=== PATIENT | female | born 1955 | race American Indian/Alaskan Native ===

== ENCOUNTER 2021-03-17 15:35 | Inpatient (IN) | payer BC ==
[2021-03-17] MEDS ORDERED: HYDROmorphone 0.5 MG/0.5 ML Syringe IVPUSH ONE (18:09)
[2021-03-17] MEDS ORDERED: Ondansetron 4 MG/2 ML SDV IVPUSH ONE (18:09)
--- NOTE | 2021-03-17 18:14 | EDM.PDOC ---
ED HPI GENERAL MEDICAL PROBLEM - General Chief Complaint: Abdominal Pain Stated Complaint: LOWER ABD PAIN Time Seen by Provider: 03/17/21 18:01 Source of Information: Reports: Patient History Limitations: Reports: No Limitations - History of Present Illness INITIAL COMMENTS - FREE TEXT/NARRATIVE: And pain that started yesterday and is continued to intensify. 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 She denies having any fever but she has had chills. She has had decreased appetite with her last meal being a few bites of dinner last night. She is tachycardic and feels achy all over. She has significant right lower quadrant pain. She has been able to pass small amounts of gas and had a little bit of diarrhea yesterday but has not had any diarrhea today. She has had some nausea but no vomiting. She is status post cholecystectomy but still has her appendix. Working for the postal service, she has been fully vaccinated for COVID-19. - Related Data Allergies Allergy/AdvReac Type Severity Reaction Status Date / Time No Known Allergies Allergy Verified 03/17/21 16:32 Home Meds: Home Meds NK [No Known Home Meds] 03/17/21 [History] Past Medical History Gastrointestinal History: Reports: Cholelithiasis - Past Surgical History Female Surgical History: Reports: Tubal Ligation Social & Family History - Tobacco Use Tobacco Use Status *Q: Never Tobacco User ED ROS GENERAL - Review of Systems Review Of Systems: See Below Constitutional: Reports: Chills, Malaise, Decreased Appetite HEENT: Reports: No Symptoms Respiratory: Reports: No Symptoms Cardiovascular: Reports: No Symptoms Endocrine: Reports: No Symptoms GI/Abdominal: Reports: Abdominal Pain (Right lower quadrant pain), Anorexia, Decreased Appetite : Reports: No Symptoms Musculoskeletal: Reports: No Symptoms Skin: Reports: No Symptoms Neurological: Reports: No Symptoms Psychiatric: Reports: No Symptoms Hematologic/Lymphatic: Reports: No Symptoms Immunologic: Reports: No Symptoms ED EXAM, GI/ABD - Physical Exam Exam: See Below Exam Limited By: No Limitations General Appearance: Alert, Mild Distress Eyes: Bilateral: EOMI Throat/Mouth: Normal Inspection, Normal Oropharynx, Normal Voice, No Airway Compromise, Other (Teeth and tongue are blue from chewing blue gum) Neck: Normal Inspection, Supple, Non-Tender, Full Range of Motion Respiratory/Chest: No Respiratory Distress, Lungs Clear, Normal Breath Sounds Cardiovascular: Normal Peripheral Pulses, Regular Rate, Rhythm, No Murmur, Tachycardia GI/Abdominal Exam: Normal Bowel Sounds, Soft, Guarding (Lower quadrant), Rebound, Tender (Suprapubic and right lower quadrant pain with palpation) Back Exam: Normal Inspection Extremities: Normal Inspection Neurological: Alert, Oriented, Normal Cognition, No Motor/Sensory Deficits Psychiatric: Normal Affect, Normal Mood Skin Exam: Warm, Dry, Intact, Normal Color Lymphatic: No Adenopathy Course - Vital Signs Last Recorded V/S: Last Vital Signs Temp 36.8 C 03/17/21 16:38 Pulse 114 H 03/17/21 16:38 Resp 18 03/17/21 16:38 BP 138/82 03/17/21 16:38 Pulse Ox 94 L 03/17/21 16:38 - Orders/Labs/Meds Orders: Active Orders 24 hr Category Date Time Status Iopamidol [Isovue-300 (61%)] Med 03/17/21 18:30 Active 100 ml IV . DIRECTED Sodium Chloride 0.9% [Normal Saline] 1,000 ml Med 03/17/21 18:15 Active IV ASDIRECTED Sodium Chloride 0.9% [Normal Saline] 80 ml Med 03/17/21 18:30 Active IV ASDIRECTED Medication Orders Sodium Chloride (Normal Saline) 1,000 mls @ 999 mls/hr IV ASDIRECTED CHARLES Last Admin: 03/17/21 18:22 Dose: 999 mls/hr Documented by: GAYATHRI Sodium Chloride (Normal Saline) 80 mls @ 3 mls/sec IV ASDIRECTED CHARLES Last Admin: 03/17/21 18:38 Dose: 3 mls/sec Documented by: LESTER Iopamidol (Iopamidol 612 Mg/Ml 100 Ml Bottle) 100 ml IV . DIRECTED CHARLES Last Admin: 03/17/21 18:38 Dose: 100 ml Documented by: LESTER Labs: Laboratory Tests 03/17/21 03/17/21 Range/Units 16:45 16:45 WBC 13.1 H (4.5-11.0) K/uL RBC 5.22 (3.30-5.50) M/uL Hgb 14.0 (12.0-15.0) g/dL Hct 44.1 (36.0-48.0) % MCV 85 (80-98) fL MCH 27 (27-31) pg MCHC 32 (32-36) % Plt Count 249 (150-400) K/uL Neut % (Auto) 89.0 H (36-66) % Lymph % (Auto) 4.7 L (24-44) % [place] % (Auto) 6.1 H (2-6) % Eos % (Auto) 0.0 L (2-4) % Baso % (Auto) 0.2 (0-1) % Sodium 140 (140-148) mmol/L Potassium 3.9 (3.6-5.2) mmol/L Chloride 102 (100-108) mmol/L Carbon Dioxide 24 (21-32) mmol/L Anion Gap 14.5 H (5.0-14.0) mmol/L BUN 11 (7-18) mg/dL Creatinine 0.8 (0.6-1.0) mg/dL Est Cr Clr Drug Dosing 54.71 mL/min Estimated GFR (MDRD) > 60 (>60) Glucose 125 H (74-106) mg/dL Calcium 8.8 (8.5-10.1) mg/dL Total Bilirubin 0.9 (0.2-1.0) mg/dL AST 22 (15-37) U/L ALT 40 (12-78) U/L Alkaline Phosphatase 102 (46-116) U/L C-Reactive Protein 10.66 H (0.0-0.3) mg/dL Total Protein 6.8 (6.4-8.2) g/dL Albumin 3.5 (3.4-5.0) g/dL Globulin 3.3 (2.3-3.5) g/dL Albumin/Globulin Ratio 1.1 L (1.2-2.2) Meds: Medications Generic Name Dose Route Start Last Admin Trade Name Freq PRN Reason Stop Dose Admin Sodium Chloride 1,000 mls @ 999 mls/hr 03/17/21 18:15 03/17/21 18:22 Normal Saline IV 999 mls/hr ASDIRECTED CHARLES Administration Sodium Chloride 80 mls @ 3 mls/sec 03/17/21 18:30 03/17/21 18:38 Normal Saline IV 3 mls/sec ASDIRECTED CHARLES Administration Iopamidol 100 ml 03/17/21 18:30 03/17/21 18:38 Iopamidol 612 Mg/Ml 100 Ml Bottle IV 100 ml . DIRECTED CHARLES Administration Discontinued Medications Generic Name Dose Route Start Last Admin Trade Name Shanna PRN Reason Stop Dose Admin Hydromorphone HCl 0.5 mg 03/17/21 18:09 03/17/21 18:22 Hydromorphone 0.5 Mg/0.5 Ml Syringe IVPUSH 03/17/21 18:10 0.5 mg ONETIME ONE Administration Ondansetron HCl 4 mg 03/17/21 18:09 03/17/21 18:22 Ondansetron 4 Mg/2 Ml Sdv IVPUSH 03/17/21 18:10 4 mg ONETIME ONE Administration - Radiology Interpretation Free Text/Narrative:: I reviewed the CT of the abdomen and pelvis with contrast showing intraluminal contrast secondary to drinking a bottle of Pepto-Bismol. The patient does have significant enlargement of the appendix with an appendicolith and a fecalith with periappendiceal stranding consistent with acute appendicitis. - Re-Assessments/Exams Free Text/Narrative Re-Assessment/Exam: 03/17/21 19:15 reviewed the patient's labs showing a significant leukocytosis at 13.1 with left shift the 9% neutrophils. Her CRP is elevated at 10.63. She has mild widening of the anion gap at 14.1. Remainder of her comprehensive metabolic panel is unremarkable. Reviewed the CT of the abdomen and pelvis with contrast showing acute appendicitis with fecalith at the base of the appendix and appendicolith in the mid section of the appendix. There is appendiceal thickening and enlargement with periappendiceal stranding. There is intraluminal contrast in the terminal ileum and ascending colon secondary to drinking a bottle of Pepto-Bismol. 03/17/21 19:38 discussed the case with Dr. Hanson who will arrange for further treatment of the patient. Departure - Departure Time of Disposition: 19:38 Disposition: Admitted As Inpatient 65 Clinical Impression: Acute appendicitis with generalized peritonitis Qualifiers: Appendicitis gangrene presence: without gangrene Appendicitis perforation pre sence: unspecified whether perforation present Appendicitis abscess presence: without abscess Qualified Code(s): K35.20 - Acute appendicitis with generalized peritonitis, without abscess - Discharge Information Referrals: Rose Nolen DIGITAL SERVICE ENGINEER [Primary Care Provider] - Forms: ED Department Discharge Sepsis Event Note (ED) - Evaluation Sepsis Screening Result: No Definite Risk - Focused Exam Vital Signs: Vital Signs Temp Pulse Resp BP Pulse Ox 03/17/21 16:38 36.8 C 114 H 18 138/82 94 L 03/17/21 16:29 36.8 C 114 H 18 138/82 94 L - Problem List & Annotations (1) Acute appendicitis with generalized peritonitis SNOMED Code(s): 07184048 Code(s): K35.20 - ACUTE APPENDICITIS WITH GEN PERITONITIS, WITHOUT ABSCESS Status: Acute Priority: High Current Visit: Yes Qualifiers: Appendicitis gangrene presence: without gangrene Appendicitis perforation presence: unspecified whether perforation present Appendicitis abscess presence: without abscess Qualified Code(s): K35.20 - Acute appendicitis with generalized peritonitis, without abscess - Problem List Review Problem List Initiated/Reviewed/Updated: Yes - My Orders Last 24 Hours: My Active Orders 03/17/21 18:15 Sodium Chloride 0.9% [Normal Saline] 1,000 ml IV ASDIRECTED 03/17/21 18:30 Iopamidol [Isovue-300 (61%)] 100 ml IV . DIRECTED Sodium Chloride 0.9% [Normal Saline] 80 ml IV ASDIRECTED - Assessment/Plan Last 24 Hours: My Active Orders 03/17/21 18:15 Sodium Chloride 0.9% [Normal Saline] 1,000 ml IV ASDIRECTED 03/17/21 18:30 Iopamidol [Isovue-300 (61%)] 100 ml IV . DIRECTED Sodium Chloride 0.9% [Normal Saline] 80 ml IV ASDIRECTED
[2021-03-17] MEDS ORDERED: Sodium Chloride 0.9% 1,000 ML IV SCH (18:15)
[2021-03-17] MEDS ORDERED: Iopamidol 612 MG/ML 100 ML Bottle IV SCH (18:30)
[2021-03-17] MEDS ORDERED: Sodium Chloride 0.9% 80 ML IV SCH (18:30)
--- NOTE | 2021-03-17 19:30 | CRLCT ---
INDICATION: Right lower quadrant pain. COMPARISON: None available TECHNIQUE: CT examination of the abdomen and pelvis was performed with the uneventful intravenous administration of 100 cc of Isovue-300 while 3 mm thick axial sections were obtained from the lung bases through the pubic symphysis. Oral contrast was not administered. Please note that all CT scans at this facility use dose modulation, iterative reconstruction, and/or weight-based dosing when appropriate to reduce radiation dose to as low as reasonably achievable. FINDINGS: In the abdomen, the liver is seem to have mild intrahepatic biliary ductal dilatation. The liver is otherwise normal in appearance aside from a small calcified granuloma in the anterior segment of the right lobe of the liver along its inferior margin. The spleen, pancreas, and adrenals are normal in appearance. The kidneys are normal in appearance. Clips are seen in the gall bladder fossa from cholecystectomy. There is moderate dilatation of the common bile duct measuring 15 millimeters in caliber extending into the pancreatic head, consistent with post cholecystectomy status. The abdominal aorta is normal in caliber with no sign of dilatation. There is no sign of retroperitoneal mass or adenopathy. The stomach, loops of small bowel, and colon in the abdomen are normal in appearance. In the pelvis, the appendix is prominently dilated at 11 millimeters with mild thickening of its leno and moderate periappendiceal inflammatory reaction, findings digital media representative of acute, non ruptured appendicitis. There is no sign of any periappendiceal abscess. Multiple appendicular with scar seen in the appendix. There is a small amount of free fluid in the right pelvis, nonspecific, probably related to the inflammation. There is no sign of any extraluminal air or free air in the pelvis to suggest perforation. The loops of small bowel and colon in the pelvis are normal in appearance. The uterus and adnexal regions are normal in appearance. The urinary bladder is normal in appearance. There is no sign of pelvic or inguinal mass or adenopathy. There is no sign of free air or free fluid in the abdomen. There is mild patchy atelectasis in the posterior lung bases, associated with moderate right and mild left diaphragmatic eventration. There is minimal anterior subluxation of L4 on L5 and of L5 on S1 associated with mild L4-5 and L5-S1 disc degenerative disease. IMPRESSION: CT of the abdomen shows changes cholecystectomy with moderate dilatation of the common bile duct and mild intrahepatic biliary ductal dilatation consistent with post cholecystectomy status. CT of the pelvis shows findings of acute, non ruptured appendicitis. Small amount of fluid in the pelvis is probably secondary to inflammation from the appendix rather than perforation. Please note that all CT scans at this facility use dose modulation, iterative reconstruction, and/or weight-based dosing when appropriate to reduce radiation dose to as low as reasonably achievable. Dictated by Issac Valdez MD @ 03/17/2021 7:27:[address] Issac Valdez @ Mar 17 2021 7:27PM
[2021-03-17] MEDS ORDERED: Promethazine 12.5 MG in Sodium Chloride 0.9% 50 ML IV PRN (20:08)
[2021-03-17] MEDS ORDERED: Morphine 4 MG/ML Syringe IVPUSH PRN (20:08)
[2021-03-17] MEDS ORDERED: diphenhydrAMINE 50 MG/ML SDV IVPUSH PRN ×2 (20:08)
[2021-03-17] MEDS ORDERED: Promethazine 25 MG in Sodium Chloride 0.9% 50 ML IV PRN (20:08)
[2021-03-17] MEDS ORDERED: Nicotine 21 MG/24 Hr Patch TRDERM PRN (20:08)
[2021-03-17] MEDS ORDERED: Ondansetron 4 MG/2 ML SDV IVPUSH PRN (20:08)
[2021-03-17] MEDS ORDERED: fentaNYL 100 MCG/2 ML SDV IVPUSH PRN ×3 (20:08)
[2021-03-17] MEDS ORDERED: diphenhydrAMINE 25 MG Cap PO PRN (20:08)
[2021-03-17] MEDS ORDERED: Scopolamine 1.5 MG Transdermal Patch TRDERM PRN (20:08)
[2021-03-17] MEDS ORDERED: Morphine 2 MG/ML SYRINGE IVPUSH PRN (20:08)
[2021-03-17] MEDS ORDERED: Piperacillin/Tazobactam 4.5 GM in Sodium Chloride 0.9% 100 ML IV SCH (20:30)
[2021-03-17] MEDS ORDERED: Sodium Chloride 0.9% 50 ML ONE (20:45)
[2021-03-17] MEDS: Piperacillin/Tazobactam/Dext 3.375 GM in Premix Bag 1 BAG IV SCH ×2 (21:03→21:05)
[2021-03-17] MEDS: Morphine 2 MG/ML SYRINGE IVPUSH PRN (23:04)
[2021-03-18] MEDS: Morphine 2 MG/ML SYRINGE IVPUSH PRN ×4 (02:10→08:24)
[2021-03-18] MEDS ORDERED: Sodium Chloride 0.9% 50 ML ONE (03:42)
[2021-03-18] MEDS: Sodium Chloride 0.9% 1,000 ML IV SCH ×2 (03:54→14:51)
[2021-03-18] MEDS: Piperacillin/Tazobactam/Dext 3.375 GM in Premix Bag 1 BAG IV SCH ×4 (03:55→22:16)
[2021-03-18] MEDS ORDERED: Bupivacaine 0.5%/EPINEPHrine 1:200,000 50 ML MDV ONE (08:18)
[2021-03-18] MEDS ORDERED: Glycopyrrolate 0.2 MG/ML 5 ML MDV ONE (08:56)
[2021-03-18] MEDS ORDERED: fentaNYL 250 MCG/5 ML SDV ONE (08:56)
[2021-03-18] MEDS ORDERED: Rocuronium 50 MG/5 ML Vial ONE (08:56)
[2021-03-18] MEDS ORDERED: Dexamethasone 4 MG/ML SDV ONE (08:56)
[2021-03-18] MEDS ORDERED: Succinylcholine 200 MG/10 ML MDV ONE (08:56)
[2021-03-18] MEDS ORDERED: Ondansetron 4 MG/2 ML SDV ONE (08:56)
[2021-03-18] MEDS ORDERED: Neostigmine Methylsulfate 1 MG/ML 5 ML Syringe ONE (08:56)
[2021-03-18] MEDS ORDERED: Propofol 200 MG/20 ML SDV ONE (08:56)
[2021-03-18] MEDS ORDERED: Zolpidem 5 MG Tab PO PRN (09:12)
[2021-03-18] MEDS ORDERED: Benzocaine/Cetylpyridinium/Menthol Lozenge MUCMEM PRN (09:12)
[2021-03-18] MEDS ORDERED: hydrOXYzine HCL 100 MG/2 ML SDV IM PRN (09:12)
[2021-03-18] MEDS ORDERED: Docusate Sodium 100 MG Cap PO PRN (09:12)
[2021-03-18] MEDS ORDERED: Lactated Ringers 1,000 ML ONE (09:41)
--- NOTE | 2021-03-18 10:07 | CONS ---
DATE OF SERVICE: 03/17/2021 REFERRING PHYSICIAN: CONSULTING PHYSICIAN: Satya Hanson MD REASON FOR CONSULTATION: Abdominal pain. HISTORY OF PRESENT ILLNESS: This is a pleasant 65-year-old female who has developed right lower quadrant abdominal pain. This is a new problem for her. The patient does not report any fevers or chills; however, she does have some nausea. No vomiting, shortness of breath, or chest pain. PAST MEDICAL HISTORY: The patient does report having her gallbladder removed. SOCIAL HISTORY: She is not a smoker. REVIEW OF SYSTEMS: GENERAL: As described above. HEENT: No symptoms. RESPIRATORY: She does report being vaccinated with respect to coronavirus disease. CARDIOVASCULAR: No history of myocardial infarction. GASTROINTESTINAL: As above. GENITOURINARY: No kidney issues. MUSCULOSKELETAL: No acute issues. NEUROLOGICAL: No symptoms. PSYCHIATRIC: No gross symptoms. The remainder of systems is reviewed and is negative. PHYSICAL EXAMINATION: VITAL SIGNS: Temperature 98.2, blood pressure 138/82, pulse 114, respirations 18, 94% on room air. GENERAL: The patient is resting comfortably. HEENT: Pupils are equal. NECK: Supple. LUNGS: Clear. CARDIOVASCULAR: Regular rhythm and rate. ABDOMEN: Pain with palpation, mild. Some guarding. No rebound. EXTREMITIES: Full range of motion. NEUROLOGICAL: Oriented x3. PSYCHIATRIC: No gross depression. IMAGING DATA: I did review the CT scan from 03/17/2021, which shows nonruptured appendicitis. ASSESSMENT: Appendicitis. PLAN: The patient will be admitted for IV antibiotics. She will undergo an appendectomy tomorrow. We discussed the risks, benefits, alternatives, and limitations including, but not limited to infection, bleeding, injury to abdominal structures, possibility of open surgery. We also discussed abscess formation and other risks not listed here. We also discussed she will undergo a TAP/rectus sheath block which we discussed the risks, benefits, alternatives, and limitations of. The patient understands these risks and wishes to proceed. Satya Hanson MD /[id number]
--- NOTE | 2021-03-18 10:51 | PN ---
DATE OF SERVICE: 03/18/2021 SUBJECTIVE: The patient unchanged overnight. No nausea, vomiting, shortness of breath, or chest pain. She remains afebrile. OBJECTIVE: CARDIOVASCULAR: Regular rhythm and rate. RESPIRATORY: Lungs clear to auscultation bilaterally. ASSESSMENT AND PLAN: To the operating room this morning for laparoscopic appendectomy. Risks, benefits, alternatives, and limitations were reviewed. Please see history and physical for further details. Satya Hanson MD /[id number]
[2021-03-18] MEDS: Acetaminophen 325 MG Tab PO PRN (17:18)
[2021-03-18] MEDS: Ibuprofen 600 MG Tab PO PRN (22:26)
[2021-03-19] MEDS: Piperacillin/Tazobactam/Dext 3.375 GM in Premix Bag 1 BAG IV SCH ×4 (03:49→20:45)
[2021-03-19] MEDS: Acetaminophen 325 MG Tab PO PRN ×4 (03:53→20:43)
[2021-03-19] MEDS: Ibuprofen 600 MG Tab PO PRN ×2 (09:01→23:25)
[2021-03-19] MEDS: Enoxaparin 40 MG/0.4 ML Syringe SUBCUT SCH (10:17)
[2021-03-20] MEDS: Acetaminophen 325 MG Tab PO PRN ×4 (02:43→21:15)
[2021-03-20] MEDS: Piperacillin/Tazobactam/Dext 3.375 GM in Premix Bag 1 BAG IV SCH ×4 (02:44→21:16)
[2021-03-20] MEDS: Ibuprofen 600 MG Tab PO PRN ×3 (08:18→21:15)
[2021-03-20] MEDS: Enoxaparin 40 MG/0.4 ML Syringe SUBCUT SCH (08:23)
--- NOTE | 2021-03-20 08:26 | OR ---
DATE OF PROCEDURE: 03/18/2021 SURGEON: Satya Hanson MD PROCEDURES: 1. Transverse abdominis plane block bilaterally. 2. Rectus sheath blocks bilaterally. COMPLICATION: None. ELECTRIC MOTOR ASSEMBLER AND TESTER: None. RISKS: Risks, benefits, alternatives, and limitations including, but not limited to, infection, bleeding, injury to abdominal structures were explained to the patient who wished to proceed. PROCEDURE IN DETAIL: The patient was placed in supine position. The left transversus abdominis plane was addressed first. This was accessed using 13 megahertz ultrasound probe under direct visual guidance. 20% of the solution was injected. This was then repeated on the other side. Bilateral rectus sheaths were then injected without abnormality also under direct visualization. At no point was needle inadvertently advanced or advanced beyond the peritoneum. The patient tolerated the procedure well. Satya Hanson MD /[id number]
--- NOTE | 2021-03-20 08:33 | PN ---
DATE OF SERVICE: 03/19/2021 SUBJECTIVE: The patient is doing well today. Pain is well controlled. No nausea, vomiting, shortness of breath, or chest pain. OBJECTIVE: VITAL SIGNS: Stable. She is afebrile. CARDIOVASCULAR: Regular rhythm and rate. RESPIRATORY: Lungs clear to auscultation bilaterally. SKIN: Incision is healing well. ASSESSMENT: Status post laparoscopic appendectomy. PLAN: The patient's white count is elevated and she had pus noted during her appendectomy. Therefore, we will keep the patient for ongoing IV antibiotics until her white blood cell count has normalized. Aside from that, continue to advance diet. Continue to increase activity. Satya Hanson MD /[id number]
--- NOTE | 2021-03-20 08:59 | OR ---
DATE OF PROCEDURE: 03/18/2021 SURGEON: Satya Hanson MD PROCEDURE: Laparoscopic appendectomy. FINDINGS: Fluid collection, right abdomen consistent with appendicitis. COMPLICATIONS: None. CHILD CENTER ASSISTANT: None. ANESTHESIA: General. RISKS: Risks, benefits, alternatives, and limitations including but not limited to infection, bleeding, abscess formation, perforation, requirement for open surgery and other risks not listed here were explained to the patient and she wished to proceed. PROCEDURE IN DETAIL: The patient was placed in supine position. A Veress needle was used to enter the abdomen without abnormality. A drop test was performed without abnormality. This was followed by an Optiview trocar. No evidence of enterotomy or injury was noted. Two additional 5 mm ports were entered under direct visualization. The appendix was noted to be densely adhered within the right lower quadrant in a retrocecal fashion. This was transected using a emerson load stapler. This was subsequently transected and delivered through the midline port. After this, the abdomen was irrigated with 3 L of irrigation. The fluid collection around the abscess was also cultured. A 10 flat Hammad-Mcgarry drain was placed. The wounds were closed with 3-0 Vicryl and 4-0 Vicryl in interrupted running fashion, irrigated prior to this, and Dermabond was applied. The patient tolerated the procedure well. Satya Hanson MD /[id number]
[2021-03-20] MEDS ORDERED: Bisacodyl 5 MG Tab PO PRN (09:32)
[2021-03-21] MEDS: Piperacillin/Tazobactam/Dext 3.375 GM in Premix Bag 1 BAG IV SCH ×2 (02:31→09:07)
[2021-03-21] MEDS: Acetaminophen 325 MG Tab PO PRN ×2 (03:38→11:06)
[2021-03-21] MEDS: Ibuprofen 600 MG Tab PO PRN (07:34)
--- NOTE | 2021-03-21 08:34 | PN ---
DATE OF SERVICE: 03/21/2021 SUBJECTIVE: The patient is doing very well. Pain is well controlled. No nausea, vomiting, shortness of breath, or chest pain. OBJECTIVE: VITAL SIGNS: Stable. CARDIOVASCULAR: Regular rhythm and rate. RESPIRATORY: Lungs are clear to auscultation bilaterally. ABDOMEN: Bowel sounds are positive. ASSESSMENT: Status post appendectomy. PLAN: The patient's white blood cell count is normal. She is afebrile. Drain output is now serosanguineous. We will discharge the patient today. Please see discharge summary for further details. Satya Hanson MD /[id number]
[2021-03-21] MEDS: Enoxaparin 40 MG/0.4 ML Syringe SUBCUT SCH (09:07)
--- NOTE | 2021-03-21 09:12 | DISCH ---
PROCEDURE: Status post laparoscopic appendectomy. SUMMARY OF HOSPITAL COURSE: This is a pleasant 65-year-old female, who was admitted and underwent laparoscopic appendectomy. The patient was known to have a decent amount of purulent material in this area. This was irrigated and drained. The patient did well. Prior to discharge, her pain was well controlled. She had no nausea, vomiting, shortness of breath, or chest pain. Her white blood cell count was normal. She was afebrile. Drain output became serosanguineous. FOLLOWUP: With Surgery in 7 to 14 days. ACTIVITY: No lifting greater than 30 pounds x30 days. DISCHARGE MEDICATIONS: Please see MAR, but include [place] for pain. /[id number]
== END 2021-03-21 11:50 | disposition home or self-care (01) | DRG 225 ==
LOC: JP.ED 15:35 → JP.MS 19:47
PROVIDERS: ADMIT Surgery; ATTEND Surgery
PROC: 0DTJ4ZZ Resection of Appendix, Percutaneous Endoscopic Approach (ICD-10-PCS; principal; 2021-03-18)
PROC: 3E0T3BZ Introduction of Anesthetic Agent into Peripheral Nerves and Plexi, Percutaneous Approach (ICD-10-PCS; 2021-03-18)
DX: K35.80 Unspecified acute appendicitis (principal); Z98.51 Tubal ligation status
CPT/HCPCS: 36415; 74177; 80048; 80053; 85025; 85027; 86140; 87070; 87075; 87077; 87186; 87205; 88304; 96374; 96375; 99284; 99285-25; A9270-GY; J0171; J0330; J1100; J1170; J1650; J2270; J2405; J2543; J2704; J2710; J2795; J3010; J3490; J7030; J7120; Q9967

== ENCOUNTER 2024-07-29 20:20 | Emergency (ER) | payer MEDICARE, BC | END 2024-07-29 21:10 | disposition home or self-care (01) | LOC: JP.ED 20:20 | DX: A68.1 Tick-borne relapsing fever (principal); Z91.89 Other specified personal risk factors, not elsewhere classified | CPT/HCPCS: 99281 ==